=== PATIENT | female | born 1970 ===

== ENCOUNTER 2020-09-23 18:24 | Emergency (ER) | payer OTHER ==
[2020-09-23] MEDS ORDERED: HYDROcodone/ACETAMINOPHEN 5-325 MG TAB PO ONE (18:28)
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
[2020-09-23 18:39] VITALS: BP 123/81
--- NOTE | 2020-09-23 19:30 | XRay Report ---
Pelvis one view INDICATION: Pain FINDINGS: Bilateral femoral heads well-seated in the acetabulum. No acute fracture dislocation. Super ior and inferior pubic rami appear intact. Cervical spine 3 views INDICATION: Neck pain FINDINGS: Alignment appears normal. No prevertebral soft tissue swelling. No acute fracture. Chest 2 views INDICATION: Trauma FINDINGS: No focal consolidation, pleural effusion or pneumothorax. No acute findings. Signer Name: Aubrey Shipley MD Signed: 09/23/2020 7:26 PM Workstation Name: [id number]
[2020-09-23] MEDS ORDERED: HYDROcodone/ACETAMINOPHEN 5-325 MG TAB ONE (20:34)
== END 2020-09-23 20:45 | disposition home or self-care (01) ==
LOC: ED 18:24
DX: S13.4XXA Sprain of ligaments of cervical spine, initial encounter (principal); S70.01XA Contusion of right hip, initial encounter; S20.219A Contusion of unspecified front wall of thorax, initial encounter; Z79.899 Other long term (current) drug therapy; Z88.8 Allergy status to other drugs, medicaments and biological substances; V49.49XA Driver injured in collision with other motor vehicles in traffic accident, initial encounter; W22.10XA Striking against or struck by unspecified automobile airbag, initial encounter; Y93.89 Activity, other specified; Y92.410 Unspecified street and highway as the place of occurrence of the external cause; Y99.8 Other external cause status
CPT/HCPCS: 71046; 72050; 72170